=== PATIENT | female | born 1990 | race Hispanic/Latino ===

== ENCOUNTER 2017-07-30 16:45 | Emergency (ER) | payer BC, SELFPAY ==
--- NOTE | 2017-07-30 18:22 | RAD ---
LUMBAR SPINE TWO VIEW 07/30/17 HISTORY: Lumbar spine pain. COMPARISON: Lumbar spine radiograph 01/07/16. FINDINGS: Five nonribbearing lumbar type vertebrae. No displaced fracture or malalignment. No listhesis. Minima l narrowing at L5-S1. Right upper quadrant surgical clips. IMPRESSION: No acute abnormality. Minimal narrowing L5-S1. POS: [facility]
--- NOTE | 2017-07-30 18:24 | RAD ---
THORACIC SPINE THREE VIEW 07/30/17 HISTORY: Pain. COMPARISON: Thoracic spine radiograph 01/07/16. FINDINGS: No fracture. No malalignment. Visualized ribs and paraspinal soft tissues are unremarkable. IMPRESSION: No acute abnormality thoracic spine. POS: [facility]
== END 2017-07-30 19:06 | disposition home or self-care (01) ==
LOC: ERS 16:45
DX: M54.6 Pain in thoracic spine (principal); G89.29 Other chronic pain; F17.200 Nicotine dependence, unspecified, uncomplicated; W01.0XXA Fall on same level from slipping, tripping and stumbling without subsequent striking against object, initial encounter; Y92.69 Other specified industrial and construction area as the place of occurrence of the external cause; Y99.0 Civilian activity done for income or pay
CPT/HCPCS: 72072; 72100

== ENCOUNTER 2017-12-28 16:31 | Emergency (ER) | payer SELFPAY ==
[2017-12-28 17:49] LABS: #Eosinphils 0.3 thou/uL (0.0-0.7); #Lymphocytes 2.6 thou/uL (1.20-3.40); #Monocytes 0.5 thou/uL (0.11-0.59); #Neutrophils 3.3 thou/uL (1.40-6.50); %Basophils 0.7 % (0.0-1.0); %Eosinophils 4.6 % (0.0-10.0); %Lymphocytes 38.5 % (21.0-51.0); %Monocytes 6.8 % (0.0-10.0); %Neutrophils 49.5 % (42.0-75.0); Hemoglobin 12.3 g/dL (12.0-16.0); Mean Corpuscular HGB CONC 31.7 g/dL (32.0-36.0); Mean Corpuscular Volume 81.8 fl (81.0-99.0); Mean Platelet Volume 7.8 fL (7.4-10.4); Platelet Count 372 thou/uL (130-400); RBC Distribution Width 14.7 % (11.5-14.5); Red Blood Cell (RBC) Count 4.73 mill/uL (4.20-5.40); White Blood Cell (WBC) Count 6.7 thou/uL (4.8-10.8)
[2017-12-28 18:09] LABS: ALT (SGPT) 12 U/L (8-55); AST (SGOT) 20 U/L (5-34); Albumin 4.2 g/dL (3.5-5.0); Alkaline Phosphatase 59 U/L (40-150); Anion Gap 11 mmol/L (10-20); BUN (Urea Nitrogen) 11 mg/dL (7.0-18.7); Bilirubin, Total 0.3 mg/dL (0.2-1.2); Calc. Creatinine Clearance 0 mL/min (70-130); Calcium 9.2 mg/dL (7.8-10.44); Carbon Dioxide 22 mmol/L (22-29); Chloride 106 mmol/L (98-107); Estimated GFR-MDRD Greater than 90; Globulin 3.3 g/dL (2.4-3.5); Glucose 81 mg/dL (70-105); Potassium 4.4 mmol/L (3.5-5.1); Protein, Total 7.5 g/dL (6.0-8.3); Sodium 135 mmol/L (136-145)
[2017-12-28 18:14] LABS: CKMB 0.7 ng/mL (0-6.6); Troponin I Less than 0.010 ng/mL (< 0.028)
== END 2017-12-28 18:25 | disposition home or self-care (01) ==
LOC: ERS 16:31
DX: K02.9 Dental caries, unspecified (principal); R07.9 Chest pain, unspecified; F17.210 Nicotine dependence, cigarettes, uncomplicated; Z79.899 Other long term (current) drug therapy
CPT/HCPCS: 36415; 80053; 82553; 84484; 85025; 93005

== ENCOUNTER 2018-08-04 22:26 | Emergency (ER) | payer BC, SELFPAY | END 2018-08-04 23:10 | disposition home or self-care (01) | LOC: ERS 22:26 | DX: L50.9 Urticaria, unspecified (principal); F17.210 Nicotine dependence, cigarettes, uncomplicated | CPT/HCPCS: 99283 ==

== ENCOUNTER 2018-10-23 23:08 | Emergency (ER) | payer BC ==
[2018-10-24 00:04] LABS: #Basophils 0.1 thou/uL (0.0-0.2); #Eosinphils 0.9 thou/uL (0.0-0.7); #Lymphocytes 3.2 thou/uL (1.20-3.40); #Monocytes 0.7 thou/uL (0.11-0.59); #Neutrophils 4.2 thou/uL (1.40-6.50); %Basophils 0.6 % (0.0-1.0); %Eosinophils 9.6 % (0.0-10.0); %Lymphocytes 35.6 % (21.0-51.0); %Monocytes 7.8 % (0.0-10.0); %Neutrophils 46.4 % (42.0-75.0); Hemoglobin 11.7 g/dL (12.0-16.0); Mean Corpuscular HGB CONC 31.8 g/dL (32.0-36.0); Mean Corpuscular Hemoglobin 27.2 pg (27.0-31.0); Mean Corpuscular Volume 85.4 fL (78.0-98.0); Mean Platelet Volume 7.6 fL (7.4-10.4); Platelet Count 365 thou/uL (130-400); Red Blood Cell (RBC) Count 4.31 mill/uL (4.20-5.40); White Blood Cell (WBC) Count 9.1 thou/uL (4.8-10.8)
[2018-10-24 00:25] LABS: ALT (SGPT) 16 U/L (8-55); AST (SGOT) 20 U/L (5-34); Albumin 4.2 g/dL (3.5-5.0); Alkaline Phosphatase 62 U/L (40-150); Anion Gap 10 mmol/L (10-20); BUN (Urea Nitrogen) 15 mg/dL (7.0-18.7); Bilirubin, Total 0.2 mg/dL (0.2-1.2); Calc. Creatinine Clearance 0 mL/min (70-130); Calcium 9.4 mg/dL (7.8-10.44); Carbon Dioxide 29 mmol/L (22-29); Chloride 102 mmol/L (98-107); Estimated GFR-MDRD Greater than 90; Globulin 2.8 g/dL (2.4-3.5); Glucose 83 mg/dL (70-105); Potassium 3.6 mmol/L (3.5-5.1); Sodium 137 mmol/L (136-145)
== END 2018-10-24 01:02 | disposition home or self-care (01) ==
LOC: ERS 23:08
DX: L29.9 Pruritus, unspecified (principal); F17.210 Nicotine dependence, cigarettes, uncomplicated
CPT/HCPCS: 36415; 80053; 85025; 99283

== ENCOUNTER 2019-04-03 05:14 | Emergency (ER) | payer BC ==
[2019-04-03] MEDS ORDERED: Ketorolac Tromethamine 30 MG/ML VIAL ONE (05:28)
[2019-04-03] MEDS ORDERED: Orphenadrine Citrate 60 MG/2 ML VIAL IM SCH (05:45)
--- NOTE | 2019-04-03 07:50 | RAD ---
2 views chest: 04/03/2019 HISTORY: Pain FINDINGS: Lungs are clear. Heart and mediastinal contours are unremarkable. IMPRESSION: No acute findings.
--- NOTE | 2019-04-07 12:19 | EKG ---
Test Reason : SOB Blood Pressure : / mmHG Vent. Rate : 070 BPM Atrial Rate : 070 BPM P-R Int : 146 ms QRS Dur : 090 ms QT Int : 416 ms P-R-T Axes : 052 022 029 degrees QTc Int : 449 ms Normal sinus rhythm Normal ECG Confirmed by DIVINE HAND M.D. ([id number]), editor in chief newspaper SRIDHAR MACHADO ([id number]) on 04/07/2019 12:19:13 PM Referred By: YAZAN Confirmed By:DIVINE HAND M.D.
== END 2019-04-03 06:52 | disposition home or self-care (01) ==
LOC: ERS 05:14
DX: R07.89 Other chest pain (principal); M62.830 Muscle spasm of back; F17.210 Nicotine dependence, cigarettes, uncomplicated
CPT/HCPCS: 71046; 93005; 96372; 96374; J1885; J2360

== ENCOUNTER 2019-10-09 12:48 | Emergency (ER) | payer BC ==
[2019-10-09 13:33] LABS: #Eosinphils 0.2 thou/uL (0.0-0.7); #Lymphocytes 2.2 thou/uL (1.20-3.40); #Monocytes 0.7 thou/uL (0.11-0.59); #Neutrophils 4.1 thou/uL (1.40-6.50); %Basophils 0.4 % (0.0-1.0); %Eosinophils 3.2 % (0.0-10.0); %Lymphocytes 30.5 % (21.0-51.0); %Monocytes 9.3 % (0.0-10.0); %Neutrophils 56.6 % (42.0-75.0); Hemoglobin 11.5 g/dL (12.0-16.0); Mean Corpuscular HGB CONC 33.6 g/dL (32.0-36.0); Mean Corpuscular Hemoglobin 28.4 pg (27.0-31.0); Mean Corpuscular Volume 84.4 fL (78.0-98.0); Mean Platelet Volume 8.4 fL (7.4-10.4); Platelet Count 299 thou/uL (130-400); RBC Distribution Width 13.7 % (11.5-14.5); Red Blood Cell (RBC) Count 4.05 mill/uL (4.20-5.40); White Blood Cell (WBC) Count 7.1 thou/uL (4.8-10.8)
--- NOTE | 2019-10-09 13:46 | ULT ---
Obstetric sonogram HISTORY: Pelvic pain. Second trimester gestation. FINDINGS: Single intrauterine gestation in variable presentation. Grade 0 placenta is anterior. heart motion at 137 bpm. Early age limits anatomic detail. Measurements are as follows: Biparietal diameter 16 weeks 2 days Head circumference 15 weeks 6 days Abdominal circumference 15 weeks 4 days Femur length 15 weeks 4 days Estimated date of delivery based on today's sonogram 03/26/2020. IMPRESSION : Single intrauterine gestation estimated gestational age 15 weeks 6 days. No abnormalities are demonst rated.
[2019-10-09 13:47] LABS: Anion Gap 9 mmol/L (10-20); BUN (Urea Nitrogen) 7 mg/dL (7.0-18.7); Calc. Creatinine Clearance 0 mL/min (70-130); Calcium 8.8 mg/dL (7.8-10.44); Carbon Dioxide 24 mmol/L (22-29); Chloride 105 mmol/L (98-107); Estimated GFR-MDRD Greater than 90; Glucose 95 mg/dL (70-105); Potassium 3.7 mmol/L (3.5-5.1); Sodium 134 mmol/L (136-145)
== END 2019-10-09 13:59 | disposition home or self-care (01) ==
LOC: ERS 12:48
DX: O26.892 Other specified pregnancy related conditions, second trimester (principal); O99.332 Smoking (tobacco) complicating pregnancy, second trimester; F17.210 Nicotine dependence, cigarettes, uncomplicated; Z3A.15 15 weeks gestation of pregnancy
CPT/HCPCS: 36415; 76815; 80048; 84702; 85025

== ENCOUNTER 2019-11-16 18:46 | Emergency (ER) | payer BC ==
[2019-11-16] MEDS ORDERED: Acetaminophen 500 MG TAB ONE (20:03)
[2019-11-16 20:37] LABS: Bilirubin Negative (Negative); Blood, Urine Negative (Negative); Clarity Clear (Clear); Glucose, Urine (Dipstick) Normal (Negative); Leukocyte Negative Leu/uL (Negative); Nitrite Negative (Negative); Protein, Urine (Dipstick) 10 mg/dL (Neg-Trace); Urobilinogen Normal mg/dL (Less than 2)
--- NOTE | 2019-11-16 20:39 | ULT ---
ULTRASOUND OBSTETRICAL COMPLETE: 11/16/19 HISTORY: 29-year-old female with abdominal pain. FINDINGS: Maternal appendix: Not identified. number: Gooden. lie: Variable. Maternal cervix: 4 cm and closed. Placenta: Anterior. No placenta previa. Amniotic fluid volume: Subjectively within normal limits. heart rate: 173 bpm The following anatomy is visualized, with no evidence of anomalies: Spine, bladder, kidneys, cord insertion, stomach, four chamber heart. biometry: Head circumference (HC): 17.9 cm 20w 3d Biparietal diameter (BPD): 5.0 cm 21w 1d Abdominal circumference (AC): 15.2 cm 20w 3d Femur length (FL): 3.4 cm 20w 4d Average ultrasound age (AUA): 20w 5d Estimated date of delivery (ALANNAH): 03/30/2020. Last menstrual period (LMP): 06/26/2019. Gestational age by LMP: 20w 3d Estimated weight (EFW): 358 g +/- 53 g (0 lb., 13 oz. +/- 2 oz.). IMPRESSION: 1. Live second trimester intrauterine gestation. 2. Estimated gestational age of 20 weeks, 5 days. 3. Variable lie. 4. Maternal appendix not visualized. LUZ MARINA Lawson POS: [facility]
[2019-11-16 20:46] LABS: #Basophils 0.1 thou/uL (0.0-0.2); #Eosinphils 0.2 thou/uL (0.0-0.7); #Lymphocytes 2.4 thou/uL (1.20-3.40); #Monocytes 0.6 thou/uL (0.11-0.59); #Neutrophils 4.9 thou/uL (1.40-6.50); %Basophils 1.2 % (0.0-1.0); %Eosinophils 2.7 % (0.0-10.0); %Lymphocytes 29.1 % (21.0-51.0); %Monocytes 7.3 % (0.0-10.0); %Neutrophils 59.7 % (42.0-75.0); Hemoglobin 10.8 g/dL (12.0-16.0); Mean Corpuscular HGB CONC 32.6 g/dL (32.0-36.0); Mean Corpuscular Hemoglobin 27.8 pg (27.0-31.0); Mean Corpuscular Volume 85.4 fL (78.0-98.0); Mean Platelet Volume 8.5 fL (7.4-10.4); Platelet Count 341 thou/uL (130-400); RBC Distribution Width 12.8 % (11.5-14.5); White Blood Cell (WBC) Count 8.1 thou/uL (4.8-10.8)
== END 2019-11-16 21:36 | disposition home or self-care (01) ==
LOC: ERS 18:46
DX: O26.892 Other specified pregnancy related conditions, second trimester (principal); R10.30 Lower abdominal pain, unspecified; O99.332 Smoking (tobacco) complicating pregnancy, second trimester; F17.210 Nicotine dependence, cigarettes, uncomplicated; Z3A.20 20 weeks gestation of pregnancy
CPT/HCPCS: 36415; 76815; 81003; 85025

== ENCOUNTER 2020-01-21 17:56 | Day surgery (SDC) | payer OTHER ==
[2020-01-21] MEDS ORDERED: hydrALAZINE 20 MG/ML VIAL SLOW IVP PRN (18:18)
[2020-01-21 18:47] VITALS: BMI 36.1
--- NOTE | 2020-01-21 19:26 | PDOC.LDHP ---
Labor and Delivery H&P Chief complaint: abdominal pain HPI: 29 y/o at 30w0d, patient of Dr. Allen, presents with low back pain that wraps to the front. It has been going on for 2 weeks but was a little worse today. She had an episode this morning, which resolved, but started again this evening, so she came in to be seen. Denies VB, LOF, or decrease FM. ROS neg for HEENT, cv, pulm, gi, gu, neuro, psych, skin or musculoskeletal symptoms other than mentioned above. OB History Details: 2 prior LTCS, first for breech and twins, second for repeat. 1 SAB Desires TOLAC Current complications: none Past Medical History: None Current medications: pre- vitamins Previous surgical history: low tranverse CS (x2), other (stitches on leg) Allergies/Adverse Reactions: Allergies Allergy/AdvReac Type Severity Reaction Status Date / Time strawberry Allergy Mild Hives Verified 01/21/20 18:39 Social history: none - Physical Exam Vital signs reviewed and normal: yes General: NAD, resting Lungs: nonlabored breathing Abdomen: gravid Extremeties: no edema FHT: category 1 (145, mod variability, + accels, no decels) [place] contractions every: none on toco - Vaginal Exam cm dilated: 0 Effacement: 0% Station: -3 - Assessment 29 y/o at 30w0d with musculoskeletal discomforts of . No e/o PTL. FFN neg. status reassuring with reactive NST. Given Tylenol for discomfort and IV fluids. - Plan -: D/c home with precautions. Advised to keep all appointments.
[2020-01-21] MEDS ORDERED: Lactated Ringer's 1,000 ML IV SCH (19:30)
[2020-01-21] MEDS ORDERED: Acetaminophen 500 MG TAB PO SCH (19:30)
[2020-01-21 20:35] LABS: FFN Internal QC Analyzer PASS (PASS); FFN Internal QC Cassette PASS (PASS); Fetal Fibronectin Negative (Negative)
== END 2020-01-21 20:47 | disposition home or self-care (01) ==
LOC: L&D/OP 17:56
PROVIDERS: ATTEND Student in an Organized Health Care Education/Training Program
DX: O99.89 Other specified diseases and conditions complicating pregnancy, childbirth and the puerperium (principal); M54.5 Low back pain; O34.211 Maternal care for low transverse scar from previous cesarean delivery; Z3A.30 30 weeks gestation of pregnancy; Z91.018 Allergy to other foods
CPT/HCPCS: 82731; 96360; 99284

== ENCOUNTER 2022-04-10 23:24 | Emergency (ER) | payer OTHER, SELFPAY ==
[2022-04-11 00:11] LABS: #Basophils 0.1 thou/uL (0.0-0.2); #Eosinphils 0.5 thou/uL (0.0-0.7); #Monocytes 0.6 thou/uL (0.11-0.59); #Neutrophils 4.3 thou/uL (1.40-6.50); %Eosinophils 5.9 % (0.0-10.0); %Lymphocytes 35.5 % (21.0-51.0); %Monocytes 6.7 % (0.0-10.0); %Neutrophils 50.8 % (42.0-75.0); Hemoglobin 13.3 g/dL (12.0-16.0); Mean Corpuscular HGB CONC 31.8 g/dL (32.0-36.0); Mean Corpuscular Hemoglobin 28.4 pg (27.0-31.0); Mean Corpuscular Volume 89.4 fL (78.0-98.0); Mean Platelet Volume 8.2 fL (7.4-10.4); Platelet Count 362 thou/uL (130-400); RBC Distribution Width 12.9 % (11.5-14.5); Red Blood Cell (RBC) Count 4.66 mill/uL (4.20-5.40); White Blood Cell (WBC) Count 8.5 thou/uL (4.8-10.8)
[2022-04-11 00:19] LABS: ALT (SGPT) 190 U/L (8-55); AST (SGOT) 128 U/L (5-34); Albumin 4.1 g/dL (3.5-5.0); Alkaline Phosphatase 95 U/L (40-110); Anion Gap 14 mmol/L (10-20); BUN (Urea Nitrogen) 11 mg/dL (7.0-18.7); Bilirubin, Total 0.2 mg/dL (0.2-1.2); Calc. Creatinine Clearance 0 mL/min (70-130); Calcium 9.2 mg/dL (7.8-10.44); Carbon Dioxide 22 mmol/L (22-29); Chloride 106 mmol/L (98-107); Estimated GFR 119; Glucose 116 mg/dL (70-105); Lipase 14 U/L (8-78); Potassium 3.7 mmol/L (3.5-5.1); Protein, Total 7.1 g/dL (6.0-8.3); Sodium 138 mmol/L (136-145)
[2022-04-11 00:31] LABS: Bacteria/HPF None Seen HPF (None Seen); Bilirubin Negative (Negative); Blood, Urine 3+ (Negative); Clarity Clear (Clear); Glucose, Urine (Dipstick) Normal (Negative); Ketone, Urine Negative (Negative); Leukocyte Negative Leu/uL (Negative); Nitrite Negative (Negative); Protein, Urine (Dipstick) Negative (Neg-Trace); RBC/HPF 21-50 HPF (0-3); Specific Gravity, Urine 1.024 (1.002-1.036); Squamous Epithelial 0-3 HPF (0-3); Urobilinogen Normal mg/dL (Less than 2); WBC/HPF 0-3 HPF (0-3)
[2022-04-11 00:38] LABS: Amphetamine Not Detected (NotDetected); Barbiturates Screen Not Detected (NotDetected); Benzodiazepine Screen Not Detected (NotDetected); Cocaine Metabolite Screen Not Detected (NotDetected); Methadone Not Detected (NotDetected); Methamphetamine Not Detected (NotDetected); Opiate Screen Not Detected (NotDetected); Oxycodone Screen Not Detected (NotDetected); Phencyclidine (PCP) Not Detected (NotDetected); THC/Cannabinoid Screen Not Detected (NotDetected); Tricyclic Screen Not Detected (NotDetected)
[2022-04-11 00:41] LABS: Pregnancy Test - Urine (BHCG) Negative (Negative); Pregu Control Background? CLEAR/WHITE (CLR/WHITE); Pregu Control Bar Appear? YES (CONTROL BAR); Specific Gravity 1.024 (1.002-1.036)
[2022-04-11] MEDS ORDERED: Acetaminophen 500 MG TAB ONE ×2 (03:05→03:08)
== END 2022-04-11 03:08 | disposition home or self-care (01) ==
LOC: ERS 23:24
DX: I10 Essential (primary) hypertension (principal); M54.2 Cervicalgia; Z87.891 Personal history of nicotine dependence
CPT/HCPCS: 36415; 71045; 80053; 80306; 81003; 81015; 81025; 83690; 84484; 85025; 93005